=== PATIENT | female | born 1995 | race Caucasian/White ===

== ENCOUNTER 2022-04-19 10:50 | Emergency (ER) | payer SELFPAY ==
[~2022-04-19] VITALS: Ht 149.9 cm; Wt 52.2 kg
--- NOTE | 2022-04-19 11:07 | NUR ---
BIBMOTHER FOR C/O LEFT FLANK PAIN 05/29 RADIATING TO LEFT THIGH SINCE YESTERDAY,NO TRAUMA. WILL CONTINUE TO MONITOR THE PATIENT.
--- NOTE | 2022-04-19 11:26 | NUR ---
IV LINE IS ESTABLISHED, BLOOD SPECIMEN COLLECTED AND SENT TO THE LAB
[2022-04-19] MEDS ORDERED: MORPHINE SULFATE INJ 2 MG/ML DISP.SYRIN IV ONE (11:30)
[2022-04-19] MEDS ORDERED: ONDANSETRON HCL/PF 4 MG/2 ML VIAL IVP ONE (11:30)
[2022-04-19] MEDS ORDERED: IV NS 0.9% 500 ML BAG IV ONE (11:30)
--- NOTE | 2022-04-19 11:38 | NUR ---
URINE COLLECTED AND SENT TO THE LAB
[2022-04-19 11:39] LABS: BASOPHILS % (AUTO) 0.5 % (0.0-2.0); EOSINOPHILS % (AUTO) 0.1 % (0.0-6.0); HEMATOCRIT 42 % (33-45); HEMOGLOBIN 14.4 g/dL (11.5-14.8); LYMPHOCYTES # (AUTO) 1.2 K/uL (0.8-4.8); LYMPHOCYTES % (AUTO) 21.7 % (20.0-44.0); MEAN CORPUSCULAR HGB CONC 34 g/dl (31.0-36.0); MEAN CORPUSCULAR VOLUME 82 fL (82-100); MONOCYTES # (AUTO) 0.2 K/uL (0.1-1.30); MONOCYTES % (AUTO) 4.4 % (2.0-12.0); NEUTROPHILS % (AUTO) 73.3 % (43.0-81.0); PLATELET COUNT (AUTO) 293 K/uL (150-450); RED BLOOD CELL COUNT(AUTO) 5.15 MIL/uL (4.0-5.2); WHITE BLOOD COUNT (AUTO) 5.4 K/uL (4.3-11.0)
[2022-04-19 11:53] LABS: CALCIUM, SERUM 9.7 mg/dL (8.5-10.1); CREATININE 0.7 mg/dL (0.6-1.3); POTASSIUM 3.7 mmol/L (3.5-5.1)
[2022-04-19 11:58] LABS: ALBUMIN 4.1 g/dL (3.4-5.0); BILIRUBIN,DIRECT 0.1 mg/dL (0.0-0.2); BILIRUBIN,TOTAL 0.3 mg/dL (0.2-1.0); TOTAL PROTEIN, SERUM 8.2 g/dL (6.4-8.2)
[2022-04-19 12:02] LABS: BILIRUBIN,URINE SMALL (NEGATIVE); COLOR,URINE YELLOW (YELLOW); LEUKOCYTE ESTERASE ,URINE NEGATIVE (NEGATIVE); NITRITE, URINE NEGATIVE (NEGATIVE); PH,URINE 5.5 (5.0-8.0); PROTEIN,URINE NEGATIVE (NEGATIVE); UGLUCOSE NEGATIVE (NEGATIVE); UROBILINOGEN,URINE 0.2 EU/dL (0.2)
--- NOTE | 2022-04-19 12:15 | NUR ---
THE PATIENT IS TAKEN TO CT [facility]IA [facility]
--- NOTE | 2022-04-19 12:21 | NUR ---
THE PATIENT IS BACK FROM CT [facility]IA [facility]
[2022-04-19 12:32] LABS: BACTERIA,URINE 1+ /HPF (None Seen); RBC,URINE 0-2 /HPF (0-2); WBC,URINE 0-2 /HPF (0-3)
[2022-04-19] MEDS ORDERED: HYDR-4303 PO (13:25)
[2022-04-19] MEDS ORDERED: IBUP-1955 PO (13:25)
--- NOTE | 2022-04-19 13:39 | NUR ---
The patient is alert and oriented x4. IV removed. Catheter intact and site benign. Pressure and 4x4 applied to site. No bleeding noted.Patient discharged to home in stable condition. Written and verbal after care instructions given. Patient verbalizes understanding of instruction.
[2022-04-19 13:40] VITALS: BP 116/75
== END 2022-04-19 13:40 | disposition home or self-care (01) ==
LOC: ER 10:54
DX: D27.9 Benign neoplasm of unspecified ovary (principal)
CPT/HCPCS: 36415; 74176; 76856; 80048; 80076; 81001; 83690; 84703; 85025; 96361; 96374; 96375; 99284; J2270; J2405; J7040